=== PATIENT | male | born 2005 | race Caucasian/White ===

== ENCOUNTER 2025-03-12 15:22 | Inpatient (IN) | payer BC ==
[~2025-03-12] VITALS: Ht 185.4 cm; Wt 66.4 kg
[2025-03-12] MEDS ORDERED: CIPROFLOXACIN500 M4 PO (15:39)
[2025-03-12 15:40] VITALS: BP 124/105
[2025-03-12] MEDS ORDERED: PREDNISONE10 MG PO (15:40)
[2025-03-12] MEDS ORDERED: OMEPRAZOLE40 MG PO (15:40)
[2025-03-12] MEDS ORDERED: Ondansetron Hydrochloride 4 MG/2 ML VIAL IV ONE (15:50)
[2025-03-12] MEDS ORDERED: SODIUM CHLORIDE 0.9% 1,000 ML IV ONE ×3 (15:50→20:20)
[2025-03-12] MEDS ORDERED: IOHEXOL 300 MG/ML 100 ML VIAL IV ONE (15:55)
[2025-03-12 16:18] LABS: MEAN CELL VOLUME 82.4 fl (80.0-94.0); MEAN CORPUSCULAR HGB 27.0 pg (27.0-31.0); MEAN PLATELET VOLUME 10.5 fl (9.6-12.3); NUCLEATED RED BLOOD CELL 0.0 % (0.0-0.0); NUCLEATED RED BLOOD CELL 0.0 10*3/uL (0.0-0.0); PLATELET COUNT AUTOMATED 367 10*3/uL (130-400); RED CELL DISTRI WIDTH 17.1 % (0-14.5)
[2025-03-12 16:20] VITALS: BP 127/91
[2025-03-12 16:27] LABS: MANUAL DIFF REFLEX YES
[2025-03-12 16:42] LABS: BUN 17 mg/dl (9-23); SGPT/ALT 10 U/L (5-49)
[2025-03-12 17:33] LABS: PLATELET SUFFICIENCY NORMAL (NORMAL)
[2025-03-12] MEDS ORDERED: ACETAMINOPHEN 650 MG SUPP R PRN (18:55)
[2025-03-12] MEDS ORDERED: Ondansetron Hydrochloride 4 MG/2 ML VIAL IV PRN (20:15)
[2025-03-12] MEDS ORDERED: HYDROmorphONE Hydrochloride 0.5 MG/0.5 ML SYRINGE IV PRN (20:15)
[2025-03-12 20:37] VITALS: BP 112/68
[2025-03-12] MEDS ORDERED: IOHEXOL 9 MG/ML (IODINE) ORAL SOLUTION PO ONE (22:25)
[2025-03-13 01:07] VITALS: BP 114/81
[2025-03-13 02:05] LABS: BILIRUBIN Negative (Negative); BLOOD Negative (Negative); CLARITY Clear (Clear); COLOR Yellow (Yellow); KETONE Negative (Negative); LEUKO ESTERASE Negative (Negative); NITRITE Negative (Negative); PH 6.0 (4.5-8.0); SPECIFIC GRAVITY >= 1.030 (1.001-1.030); UROBILINOGEN 0.2 E.U./dl (0.0-1.0)
[2025-03-13 02:30] LABS: RBC 0-2 rbc/hpf (0-2); WBC 0-2 wbc/hpf (0-5)
[2025-03-13] MEDS ORDERED: SODIUM CHLORIDE 0.9% 1,000 ML IV ONE (04:35)
[2025-03-13 04:54] VITALS: BP 100/48
[2025-03-13 06:14] LABS: MANUAL DIFF REFLEX YES; MEAN CELL VOLUME 83.5 fl (80.0-94.0); MEAN CORPUSCULAR HGB 26.6 pg (27.0-31.0); MEAN PLATELET VOLUME 10.9 fl (9.6-12.3); NUCLEATED RED BLOOD CELL 0.0 % (0.0-0.0); NUCLEATED RED BLOOD CELL 0.0 10*3/uL (0.0-0.0); PLATELET COUNT AUTOMATED 309 10*3/uL (130-400); RED CELL DISTRI WIDTH 17.2 % (0-14.5)
[2025-03-13 06:51] LABS: BUN 12 mg/dl (9-23); FREE T4 1.32 ng/dl (0.89-1.76); LDL CHOLESTEROL 65 mg/dL (9-159)
[2025-03-13 06:52] LABS: PLATELET SUFFICIENCY NORMAL (NORMAL)
[2025-03-13 06:57] LABS: SGPT/ALT < 7 U/L (5-49); VITAMIN D, 25-HYDROXY 34.4 ng/mL (30-100)
[2025-03-13 08:13] VITALS: BP 116/71
[2025-03-13] MEDS ORDERED: SODIUM CHLORIDE 0.9% 1,000 ML IV SCH (12:40)
[2025-03-13 17:40] VITALS: BP 115/72
[2025-03-13 20:00] VITALS: BP 116/56
[2025-03-14] VITALS: BP 115/50
[2025-03-14 08:00] VITALS: BP 111/41
[2025-03-14 08:32] LABS: MEAN CELL VOLUME 82.5 fl (80.0-94.0); MEAN CORPUSCULAR HGB 26.7 pg (27.0-31.0); MEAN PLATELET VOLUME 9.9 fl (9.6-12.3); NUCLEATED RED BLOOD CELL 0.0 % (0.0-0.0); NUCLEATED RED BLOOD CELL 0.0 10*3/uL (0.0-0.0); PLATELET COUNT AUTOMATED 275 10*3/uL (130-400); RED CELL DISTRI WIDTH 16.9 % (0-14.5)
[2025-03-14 08:35] LABS: MANUAL DIFF REFLEX YES
[2025-03-14 08:54] LABS: BUN 14 mg/dl (9-23)
[2025-03-14 09:09] LABS: PLATELET SUFFICIENCY NORMAL (NORMAL)
[2025-03-14 12:00] VITALS: BP 108/52
[2025-03-14 16:00] VITALS: BP 114/56
[2025-03-14] MEDS ORDERED: Safflower/Soybean Oil (LIPOSYN 500 ML IV SCH (18:00)
[2025-03-14] MEDS ORDERED: TOTAL PARENTERAL NUTRITION IV SCH (18:00)
[2025-03-14] MEDS ORDERED: [UNRECOGNIZED DRUG - OTHER] IV SCH (18:00)
[2025-03-14] MEDS ORDERED: MULTIVITAMIN TRACE ELEMENT IV SCH (18:00)
[2025-03-14 20:00] VITALS: BP 97/54
[2025-03-15] VITALS: BP 111/56
[2025-03-15 06:05] LABS: BASO # 0.0 10*3/uL (0.0-0.1); BASO % 0.1 % (0.0-1.0); EOS # 0.0 10*3/uL (0.0-0.4); EOS % 0.1 % (1.0-4.0); MEAN CELL VOLUME 83.9 fl (80.0-94.0); MEAN CORPUSCULAR HGB 26.8 pg (27.0-31.0); MEAN PLATELET VOLUME 10.5 fl (9.6-12.3); MONO # 0.7 10*3/uL (0.1-1.0); MONO % 4.3 % (3.0-9.0); NEUT # 14.9 10*3/uL (2.3-7.9); NEUT % 89.2 % (47.0-73.0); NUCLEATED RED BLOOD CELL 0.0 % (0.0-0.0); NUCLEATED RED BLOOD CELL 0.0 10*3/uL (0.0-0.0); PLATELET COUNT AUTOMATED 267 10*3/uL (130-400); RED CELL DISTRI WIDTH 16.9 % (0-14.5)
[2025-03-15 06:15] LABS: BUN 19 mg/dl (9-23)
[2025-03-15 08:00] VITALS: BP 98/50
[2025-03-15 11:52] VITALS: BP 106/52
[2025-03-15 16:00] VITALS: BP 127/65
[2025-03-15] MEDS ORDERED: [UNRECOGNIZED DRUG - OTHER] IV SCH (18:00)
[2025-03-15] MEDS ORDERED: [UNRECOGNIZED DRUG - OTHER] IV SCH (18:00)
[2025-03-15 20:00] VITALS: BP 118/71
[2025-03-16] VITALS: BP 118/67
[2025-03-16 06:47] LABS: BASO # 0.0 10*3/uL (0.0-0.1); BASO % 0.1 % (0.0-1.0); EOS # 0.0 10*3/uL (0.0-0.4); EOS % 0.1 % (1.0-4.0); MEAN CELL VOLUME 83.9 fl (80.0-94.0); MEAN CORPUSCULAR HGB 26.6 pg (27.0-31.0); MEAN PLATELET VOLUME 10.8 fl (9.6-12.3); MONO # 0.8 10*3/uL (0.1-1.0); MONO % 5.3 % (3.0-9.0); NEUT # 13.0 10*3/uL (2.3-7.9); NEUT % 87.7 % (47.0-73.0); NUCLEATED RED BLOOD CELL 0.0 % (0.0-0.0); NUCLEATED RED BLOOD CELL 0.0 10*3/uL (0.0-0.0); PLATELET COUNT AUTOMATED 290 10*3/uL (130-400); RED CELL DISTRI WIDTH 16.7 % (0-14.5)
[2025-03-16 07:17] LABS: BUN 18 mg/dl (9-23)
[2025-03-16 08:00] VITALS: BP 112/59
[2025-03-16 12:00] VITALS: BP 109/70
[2025-03-16 16:00] VITALS: BP 104/58
[2025-03-16 20:00] VITALS: BP 103/55
[2025-03-17] VITALS: BP 102/40
[2025-03-17 06:37] LABS: BASO # 0.0 10*3/uL (0.0-0.1); BASO % 0.1 % (0.0-1.0); EOS # 0.0 10*3/uL (0.0-0.4); EOS % 0.0 % (1.0-4.0); MEAN CELL VOLUME 83.2 fl (80.0-94.0); MEAN CORPUSCULAR HGB 26.5 pg (27.0-31.0); MEAN PLATELET VOLUME 10.6 fl (9.6-12.3); MONO # 0.9 10*3/uL (0.1-1.0); MONO % 6.7 % (3.0-9.0); NEUT # 11.6 10*3/uL (2.3-7.9); NEUT % 82.1 % (47.0-73.0); NUCLEATED RED BLOOD CELL 0.0 % (0.0-0.0); NUCLEATED RED BLOOD CELL 0.0 10*3/uL (0.0-0.0); PLATELET COUNT AUTOMATED 333 10*3/uL (130-400); RED CELL DISTRI WIDTH 16.7 % (0-14.5)
[2025-03-17 07:13] LABS: BUN 21 mg/dl (9-23)
[2025-03-17 08:00] VITALS: BP 103/58
[2025-03-17 12:00] VITALS: BP 97/59
[2025-03-17] MEDS ORDERED: PREDNISONE10 MG PO ×2 (15:18→15:22)
== END 2025-03-17 16:10 | disposition home or self-care (01) | DRG 871 ==
LOC: ED 15:22 → EDHOLD 18:25 → 5E 18:25 → EDHOLD 18:58 → 5E 03-13 15:22
PROVIDERS: Nurse Practitioner Family; Student in an Organized Health Care Education/Training Program; ADMIT Internal Medicine; ATTEND Internal Medicine
PROC: 0D9670Z Drainage of Stomach with Drainage Device, Via Natural or Artificial Opening (ICD-10-PCS; principal; 2025-03-12)
DX: A41.9 Sepsis, unspecified organism (principal); K65.9 Peritonitis, unspecified; K50.012 Crohn's disease of small intestine with intestinal obstruction; F17.210 Nicotine dependence, cigarettes, uncomplicated; R73.9 Hyperglycemia, unspecified; Z79.899 Other long term (current) drug therapy; Z79.01 Long term (current) use of anticoagulants; Z79.2 Long term (current) use of antibiotics; Z84.89 Family history of other specified conditions